=== PATIENT | male | born 1980 | race Caucasian/White ===

== ENCOUNTER 2016-09-19 16:53 | Emergency (ER) | payer MEDICAID ==
[~2016-09-19] VITALS: Ht 170.2 cm; Wt 74.8 kg
[2016-09-19 17:00] VITALS: BP 114/79; PULSE 74; RESP 17; TEMP 97.4; O2SAT 96
--- NOTE | 2016-09-19 17:00 | NUR ---
Patient to ER bed 7 to gown for evaluation. Side rails up. Report given to Becka TOLENTINO.
--- NOTE | 2016-09-19 17:10 | NUR ---
PT. TO THE ER AAOx4 C/O UNUSUAL GENITAL DISCHARGE WITH BURNING SENSATOIN WHILE URINATING, STATES THAT HE IS EXPERIENCING "STI SYMPTOMS PENIS DISCHARGE AND IRRITATION TO AREA" STATES HE HAS UNPROTECTED SEX WENT TO [facility] 2 WEEKS AGO, STATES HE HAS NOT FOLLOWED UP WITH THE RESULTS, DENIES FEVER OR CHILLS, STATES HE HAS NOT HAD SEXUAL INTERCOURSE FOR PAST 3 WEEKS, NO OTHER COMPLAINTS
--- NOTE | 2016-09-19 17:15 | NUR ---
DR. VILLEGAS AT BEDSIDE EXAMINING THE PT.
[2016-09-19] MEDS ORDERED: cefTRIAXone 250 MG in LIDOCAINE 1%, 20 ML MDV 0.9 ML IM ONE (17:30)
[2016-09-19] MEDS ORDERED: LIDOCAINE 1% 10 MG/ML, 20 ML MDV INJ ONE (17:30)
[2016-09-19] MEDS ORDERED: AZITHROMYCIN 250 MG TABLET PO ONE (17:30)
[2016-09-19] MEDS ORDERED: cefTRIAXone 500 MG in LIDOCAINE 1%, 20 ML MDV 1 ML IM ONE (17:30)
[2016-09-19 17:40] VITALS: BP 126/66; PULSE 77; RESP 15; TEMP 98.2; O2SAT 98
--- NOTE | 2016-09-19 17:40 | NUR ---
Patient given written and verbal discharge instructions and verbalizes understanding. ER MD dr. stanley discussed with patient the results and treatment provided. Patient in stable condition. ID arm band removed. No Rx given. Patient educated on pain management and to follow up with PMD. Pain Scale 0/10 Opportunity for questions provided and answered.
[2016-09-19 17:44] LABS: BILIRUBIN,URINE NEGATIVE (NEGATIVE); BLOOD, URINE NEGATIVE (NEGATIVE); CLARITY/URINE CLEAR (CLEAR); COLOR,URINE YELLOW (YELLOW); GLUCOSE,URINE NEGATIVE (NEGATIVE); KETONES,URINE NEGATIVE (NEGATIVE); LEUKOCYTE ESTERASE ,URINE TRACE (NEGATIVE); NITRITE, URINE NEGATIVE (NEGATIVE); PROTEIN URINE NEGATIVE (NEGATIVE); UROBILINOGEN,URINE 0.2 (0.2-1.0)
[2016-09-19 18:02] LABS: BACTERIA,URINE RARE /HPF (None Seen); RBC,URINE 0-3 /HPF (0-3)
[2016-09-22 06:06] LABS: CHLAMYDIA TRACHOMATIS NAA Negative (Negative); NEISSERIA GONORRHOEAE NAA Negative (Negative)
== END 2016-09-19 17:40 | disposition home or self-care (01) ==
LOC: SED 16:53
DX: N34.2 Other urethritis (principal); J45.909 Unspecified asthma, uncomplicated; Z88.0 Allergy status to penicillin
CPT/HCPCS: 81000; 87491; 87591; 96372; 99284; J0696; J2001; Q0144

== ENCOUNTER 2018-01-09 16:52 | Emergency (ER) | payer MEDICAID ==
[~2018-01-09] VITALS: Ht 170.2 cm; Wt 76.7 kg
[2018-01-09 16:57] VITALS: BP_SYST 114
[2018-01-09] MEDS ORDERED: KETOROLAC TROMETHAMINE 30 MG VIAL IM ONE (17:15)
[2018-01-09] MEDS ORDERED: DEXAMETHASONE SOD PHOSPHATE 10 MG/ML VIAL IM ONE (17:15)
[2018-01-09 17:55] VITALS: BP_SYST 110
== END 2018-01-09 17:55 | disposition home or self-care (01) ==
LOC: SED 16:52
DX: J02.0 Streptococcal pharyngitis (principal); J45.909 Unspecified asthma, uncomplicated; Z88.0 Allergy status to penicillin
CPT/HCPCS: 36415; 86403; 96372; 99284; J1100; J1885

== ENCOUNTER 2018-09-20 08:58 | Emergency (ER) | payer MEDICAID ==
[~2018-09-20] VITALS: Ht 167.6 cm; Wt 77.1 kg
[2018-09-20 09:03] VITALS: BP_SYST 121
--- NOTE | 2018-09-20 09:05 | NUR ---
Patient to ER bed 07 to gown for evaluation. Side rails up.
--- NOTE | 2018-09-20 09:05 | NUR ---
patient arrived AOx4 from home with c/o a sore throat for 3 days. patient states he has had this before and has not had a flu shot this year. patient currently does not have a fever. throat is pink without signs of white patches at this time. patient denies n/v of any kind. 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
--- NOTE | 2018-09-20 09:15 | NUR ---
ER at bedside examining patient.
--- NOTE | 2018-09-20 09:56 | NUR ---
influenza and strep B collected.
[2018-09-20 10:20] LABS: STREPTOCOCCUS A SCREEN (RAPID) NEGATIVE (NEGATIVE)
[2018-09-20 10:25] LABS: INFLUENZA A&B ANTIGEN SCREEN NEGATIVE FOR A & B (NEGATIVE)
--- NOTE | 2018-09-20 10:53 | NUR ---
Patient given written and verbal discharge instructions and verbalizes understanding. ER MD discussed with patient the results and treatment provided. Patient in stable condition. ID arm band removed. IV catheter removed intact and dressing applied, no active bleeding. Rx of clindamycin hcl, motrin given. Patient educated on pain management and to follow up with PMD. Pain Scale 0/10. Opportunity for questions provided and answered. Medication side effect fact sheet provided.
[2018-09-20 10:56] VITALS: BP_SYST 122
== END 2018-09-20 10:53 | disposition home or self-care (01) ==
LOC: SED 08:58
DX: J02.8 Acute pharyngitis due to other specified organisms (principal); B96.89 Other specified bacterial agents as the cause of diseases classified elsewhere; J45.909 Unspecified asthma, uncomplicated; Z88.0 Allergy status to penicillin
CPT/HCPCS: 36415; 86403; 86710; 87081; 99283

== ENCOUNTER 2018-12-15 12:34 | Emergency (ER) | payer MEDICAID ==
[~2018-12-15] VITALS: Ht 170.2 cm; Wt 72.6 kg
[2018-12-15 12:34] VITALS: BP_SYST 120
[2018-12-15 13:56] VITALS: BP_SYST 118
== END 2018-12-15 13:57 | disposition home or self-care (01) ==
LOC: SED 12:34
DX: J02.9 Acute pharyngitis, unspecified (principal); R03.0 Elevated blood-pressure reading, without diagnosis of hypertension; J45.909 Unspecified asthma, uncomplicated; Z88.0 Allergy status to penicillin
CPT/HCPCS: 36415; 86403; 87081; 99283

== ENCOUNTER 2020-07-16 13:02 | Emergency (ER) | payer MEDICAID ==
[~2020-07-16] VITALS: Ht 175.3 cm; Wt 83.9 kg
[2020-07-16 13:05] VITALS: BP_SYST 111
[2020-07-16] MEDS ORDERED: ACETAMINOPHEN 500 MG TABLET ONE (13:27)
== END 2020-07-16 14:00 | disposition home or self-care (01) ==
LOC: SED 13:02
DX: U07.1 COVID-19 (principal); R50.9 Fever, unspecified; R05 Cough; J45.909 Unspecified asthma, uncomplicated; Z88.0 Allergy status to penicillin
CPT/HCPCS: 99283; C9803; U0003

== ENCOUNTER 2020-07-27 10:58 | Emergency (ER) | payer MEDICAID ==
[~2020-07-27] VITALS: Ht 175.3 cm; Wt 83.9 kg
== END 2020-07-27 12:14 | disposition home or self-care (01) ==
LOC: SED 10:58
DX: U07.1 COVID-19 (principal); R06.00 Dyspnea, unspecified; J45.909 Unspecified asthma, uncomplicated; Z88.0 Allergy status to penicillin
CPT/HCPCS: 99281

== ENCOUNTER 2022-06-07 10:19 | Emergency (ER) | payer MEDICAID ==
[~2022-06-07] VITALS: Ht 175.3 cm; Wt 79.4 kg
[2022-06-07 10:20] VITALS: BP_SYST 109
[2022-06-07] MEDS ORDERED: GENTAMICIN SULFATE 80 MG/ 2ML VIAL IM ONE (10:45)
[2022-06-07] MEDS ORDERED: AZITHROMYCIN 250 MG TABLET PO ONE (10:45)
[2022-06-07] MEDS ORDERED: DOXY100T2 PO (11:14)
== END 2022-06-07 11:55 | disposition home or self-care (01) ==
LOC: SED 10:19
DX: A64 Unspecified sexually transmitted disease (principal); R30.0 Dysuria; R36.9 Urethral discharge, unspecified; J45.909 Unspecified asthma, uncomplicated; Z88.0 Allergy status to penicillin; Z79.899 Other long term (current) drug therapy
CPT/HCPCS: 99283; 86592; 86701; 86702; 36415; 81002; 96372; 87491; J1580; Q0144

== ENCOUNTER 2022-10-17 11:18 | Emergency (ER) | payer MEDICAID ==
[~2022-10-17] VITALS: Ht 175.3 cm; Wt 79.4 kg
[~2022-10-17 11:18] MED LIST: DOXY100T2 PO
[2022-10-17 11:23] VITALS: BP_SYST 124
--- NOTE | 2022-10-17 11:33 | NUR ---
ESCORTED PT TO ROOM #7. REPORT TO AMRIK TOLENTINO. PT REFUSING TO WEAR MASK. URINE CUP PROVIDED FOR SPECIMEN. DIRECTED PT TO R/R.
--- NOTE | 2022-10-17 11:34 | NUR ---
ER at bedside examining patient.
--- NOTE | 2022-10-17 11:35 | NUR ---
Patient arrived to ED 7 for c/o discharge in penile area. Patient said that he had unprotected sex with a partner and he noticed discharge that is a "white milky discharge." Patient said that he has had an STD in the past. He describes discomfort from the area. Dr. mao MSE patient.
[2022-10-17] MEDS ORDERED: AZITHROMYCIN 250 MG TABLET PO ONE (11:45)
[2022-10-17] MEDS ORDERED: GENTAMICIN SULFATE 80 MG/ 2ML VIAL IM ONE (11:45)
[2022-10-17] MEDS ORDERED: DOXY100C5 PO (12:18)
[2022-10-17 12:23] LABS: BILIRUBIN,URINE NEGATIVE (NEGATIVE); BLOOD, URINE NEGATIVE (NEGATIVE); CLARITY/URINE CLEAR (CLEAR); COLOR,URINE YELLOW (YELLOW); GLUCOSE,URINE NEGATIVE (NEGATIVE); KETONES,URINE TRACE (NEGATIVE); LEUKOCYTE ESTERASE ,URINE NEGATIVE (NEGATIVE); NITRITE, URINE NEGATIVE (NEGATIVE); PROTEIN URINE TRACE (NEGATIVE)
[2022-10-17 12:43] LABS: BACTERIA,URINE RARE /HPF (None Seen); RBC,URINE 0-3 /HPF (0-3); WBC,URINE 0-3 /HPF (0-3)
[2022-10-17 12:44] LABS: MUCUS,URINE 1+ /LPF (None Seen)
[2022-10-17 12:48] VITALS: BP_SYST 138
--- NOTE | 2022-10-17 13:06 | NUR ---
Patient given written and verbal discharge instructions and verbalizes understanding. ER MD discussed with patient the results and treatment provided. Patient in stable condition. ID arm band removed. IV catheter removed intact and dressing applied, no active bleeding. Rx of ANTIBIOTICS given. Patient educated on pain management and to follow up with PMD. Opportunity for questions provided and answered. Medication side effect fact sheet provided.
== END 2022-10-17 13:06 | disposition home or self-care (01) ==
LOC: SED 11:18
DX: R36.9 Urethral discharge, unspecified (principal); J45.909 Unspecified asthma, uncomplicated; Z88.0 Allergy status to penicillin; Z79.899 Other long term (current) drug therapy
CPT/HCPCS: 99283; 81000; 87086; 36415; 96372; 87491; J1580; Q0144

== ENCOUNTER 2023-09-22 15:41 | Emergency (ER) | payer MEDICAID, OTHER ==
[~2023-09-22] VITALS: Ht 175.3 cm; Wt 79.4 kg
[2023-09-22 15:41] VITALS: BP_SYST 120; PULSE 86; RESP 18; TEMP 98.6; O2SAT 97
[~2023-09-22 15:41] MED LIST changes: +DOXY100C5 PO
[2023-09-22 16:46] LABS: BILIRUBIN,URINE NEGATIVE (NEGATIVE); BLOOD, URINE NEGATIVE (NEGATIVE); CLARITY/URINE CLEAR (CLEAR); COLOR,URINE YELLOW (YELLOW); GLUCOSE,URINE NEGATIVE (NEGATIVE); KETONES,URINE NEGATIVE (NEGATIVE); LEUKOCYTE ESTERASE ,URINE NEGATIVE (NEGATIVE); NITRITE, URINE NEGATIVE (NEGATIVE); PROTEIN URINE NEGATIVE (NEGATIVE)
[2023-09-22] MEDS ORDERED: DOXY100C PO (16:57)
[2023-09-22] MEDS: DOXYCYCLINE HYCLATE 100 MG CAPSULE PO ONE (17:26)
[2023-09-22] MEDS: AZITHROMYCIN 250 MG TABLET PO ONE (17:26)
[2023-09-22] MEDS: GENTAMICIN SULFATE 80 MG/ 2ML VIAL IM ONE (17:29)
[2023-09-22 17:36] VITALS: BP_SYST 120; PULSE 86; RESP 18; TEMP 98.6; O2SAT 97
== END 2023-09-22 17:36 | disposition home or self-care (01) ==
LOC: SED 15:41
DX: Z20.2 Contact with and (suspected) exposure to infections with a predominantly sexual mode of transmission (principal); R36.9 Urethral discharge, unspecified; J45.909 Unspecified asthma, uncomplicated; Z88.0 Allergy status to penicillin; Z79.899 Other long term (current) drug therapy
CPT/HCPCS: 99283; 81001; 36415; 96372; 87491; 81003; J1580; Q0144

== ENCOUNTER 2024-01-29 12:54 | Emergency (ER) | payer OTHER ==
[~2024-01-29] VITALS: Ht 175.3 cm; Wt 77.1 kg
[~2024-01-29 12:54] MED LIST changes: +DOXY100C PO
[2024-01-29 13:11] VITALS: BP_SYST 119; PULSE 118; RESP 18; TEMP 97.8; O2SAT 97
[2024-01-29 14:13] LABS: BILIRUBIN,URINE NEGATIVE (NEGATIVE); BLOOD, URINE NEGATIVE (NEGATIVE); CLARITY/URINE CLEAR (CLEAR); COLOR,URINE YELLOW (YELLOW); GLUCOSE,URINE NEGATIVE (NEGATIVE); KETONES,URINE TRACE (NEGATIVE); LEUKOCYTE ESTERASE ,URINE NEGATIVE (NEGATIVE); NITRITE, URINE NEGATIVE (NEGATIVE); PROTEIN URINE TRACE (NEGATIVE)
[2024-01-29] MEDS ORDERED: DOXY100C5 PO (16:45)
[2024-01-29 17:00] VITALS: BP_SYST 119; PULSE 118; RESP 18; TEMP 97.8; O2SAT 97
== END 2024-01-29 16:55 | disposition home or self-care (01) ==
LOC: SED 12:54
DX: R30.0 Dysuria (principal); J45.909 Unspecified asthma, uncomplicated; F12.90 Cannabis use, unspecified, uncomplicated; Z88.0 Allergy status to penicillin; Z79.899 Other long term (current) drug therapy
CPT/HCPCS: 36415; 76870; 81001; 81003; 87491; 99284